=== PATIENT | female | born 1975 | race American Indian/Alaskan Native ===

== ENCOUNTER 2018-11-14 23:17 | Emergency (ER) | payer OTHER ==
[2018-11-14 23:35] VITALS: BP 111/70
[2018-11-15] MEDS ORDERED: FIORICET PO ONE (01:43)
[2018-11-15] MEDS ORDERED: ZOFRAN IV ONE (01:43)
[2018-11-15] MEDS ORDERED: TORADOL IV ONE (01:43)
--- NOTE | 2018-11-15 02:23 | Cat Scan Report ---
CT head without contrast INDICATION : HEADACHE. Headache and blurred vision today TECHNIQUE: Axial imaging performed from the skull apex through the skull base without the use of con trast. All CT scans at this location are performed using CT dose reduction for ALARA by means of aut omated exposure control. COMPARISON: None FINDINGS: Parenchyma: No acute intracranial hemorrhage or parenchymal abnormality. Ventricles: Ventricles are normal in size and appear symmetric. Soft tissues: Soft tissues including the orbits appear normal. Bones: No acute osseous abnormality. Sinuses: Sinuses and mastoid air cells are clear. IMPRESSION: No acute abnormality. Signer Name: Og Cook MD Signed: 11/15/2018 2:19 AM Workstation Name: [id number]
[2018-11-15 02:49] LABS: Alanine Aminotransferase 9 units/L (7-56); Albumin 3.9 g/dL (3.9-5); BUN/Creatinine Ratio 26; Blood Urea Nitrogen 21 mg/dL (7-17); Hemolysis Index 15
[2018-11-15 02:56] LABS: Basophils % (Auto) 0.4 % (0.0-1.8); Eosinophils # (Auto) 0.3 K/mm3 (0.0-0.4); Eosinophils % (Auto) 3.9 % (0.0-4.3); Hematocrit 36.5 % (30.3-42.9); Hemoglobin 12.1 gm/dl (10.1-14.3); Lymphocytes # (Auto) 3.4 K/mm3 (1.2-5.4); Mean Corpuscular HGB Conc 33 % (30-34); Mean Corpuscular Volume 84 fl (79-97); Monocytes # (Auto) 0.6 K/mm3 (0.0-0.8); Monocytes % (Auto) 7.5 % (0.0-7.3); Platelet Count 238 K/mm3 (140-440); Red Blood Count 4.36 M/mm3 (3.65-5.03); Red Cell Distribution Width 14.2 % (13.2-15.2)
[2018-11-15] MEDS ORDERED: NACL 0.9% 1000 ML 1,000 ML IV ONE (03:34)
[2018-11-15 04:46] LABS: HCG Qualitative,Urine Negative (Negative)
[2018-11-15 04:50] LABS: Bilirubin,Urine NEG (Negative); Blood,Urine NEG (Negative); Color,Urine Yellow (Yellow); Mucus,Urine 1+ /HPF; Protein,Urine <15 mg/dL mg/dL (Negative); Urobilinogen,Urine < 2.0 mg/dL (<2.0)
--- NOTE | 2018-11-15 05:19 | Emergency Department Report ---
ED Headache HPI - General Chief Complaint: Headache Stated Complaint: BLURRED VISION,SUMNER Time Seen by Provider: 11/15/18 01:35 Source: patient Exam Limitations: no limitations - History of Present Illness Initial Comments: Patient is a 43 yo AA female with no past medical history who presents to the ED compound of acute onset persistent headache on the right temporal side with b lurry vision for the last 1 week. Patient also states that she has been having intermittent right arm tingling sensation and neck pain. Patient denies nausea, vomiting, chest pain, shortness of breath, dizziness, syncope, seizures, abdominal pain, fever, chills, cough, nasal and sinus congestion or vision loss and palpitations. Timing/Duration: 1 week Quality: severe, sharp Head Injury Location: temporal (right) Recent Head Trauma: no recent headache/trauma Associated Symptoms: denies symptoms. denies: confusion, fatigue, facial pain, fever/chills, flushing, loss of consciousness, nausea/vomiting, nasal congestion, nasal drainage, numbness in legs/feet, seizures, sinus infection, stiff neck, vision changes, weakness Allergies/Adverse Reactions: Allergies No Known Allergies Allergy (Unverified 11/14/18 23:35) Home Medications: Ambulatory Orders Butalb/Acetamin/Caff 50-325-40 [Fioricet 50-325-40] 1 - 2 tab PO Q6HR PRN #15 tab 11/15/18 Ketorolac [Toradol] 10 mg PO Q8H PRN #20 tablet 11/15/18 Ondansetron [Zofran Odt] 4 mg PO Q6HR PRN #15 tab.rapdis 11/15/18 predniSONE [Deltasone] 40 mg PO QDAY #10 tab 11/15/18 ED Review of Systems ROS: Stated complaint: BLURRED VISION,SUMNER Other details as noted in HPI Constitutional: denies: chills, fever Eyes: denies: eye pain, eye discharge, vision change ENT: denies: ear pain, throat pain Respiratory: denies: cough, shortness of breath, wheezing Cardiovascular: denies: chest pain, palpitations Endocrine: no symptoms reported Gastrointestinal: denies: abdominal pain, nausea, diarrhea Genitourinary: denies: urgency, dysuria, discharge Musculoskeletal: denies: back pain, joint swelling, arthralgia Skin: denies: rash, lesions Neurological: headache. denies: weakness, paresthesias Psychiatric: denies: anxiety, depression Hematological/Lymphatic: denies: easy bleeding, easy bruising ED Past Medical Hx - Past Medical History Previous Medical History?: No - Surgical History Past Surgical History?: Yes Additional Surgical History: Right Carpal Tunnel - Social History Smoking Status: Current Every Day Smoker Substance Use Type: None - Medications Home Medications: Home Medications Medication Instructions Recorded Confirmed Last Taken Type Butalb/Acetamin/Caff 50-325-40 1 - 2 tab PO Q6HR PRN #15 tab 11/15/18 Unknown Rx [Fioricet 50-325-40] Ketorolac [Toradol] 10 mg PO Q8H PRN #20 tablet 11/15/18 Unknown Rx Ondansetron [Zofran Odt] 4 mg PO Q6HR PRN #15 tab.rapdis 11/15/18 Unknown Rx predniSONE [Deltasone] 40 mg PO QDAY #10 tab 11/15/18 Unknown Rx ED Physical Exam - General Limitations: No Limitations General appearance: alert, in no apparent distress - Head Head exam: Present: atraumatic, normocephalic - Eye Eye exam: Present: normal appearance, PERRL, EOMI Pupils: Present: normal accommodation - ENT ENT exam: Present: normal exam, normal orophraynx, mucous membranes moist, TM's normal bilaterally, normal external ear exam - Neck Neck exam: Present: normal inspection, full ROM. Absent: tenderness, lymphadenopathy, thyromegaly - Respiratory Respiratory exam: Present: normal lung sounds bilaterally. Absent: respiratory distress, wheezes, rales, rhonchi, chest wall tenderness, accessory muscle use, decreased breath sounds - Cardiovascular Cardiovascular Exam: Present: regular rate, normal rhythm, normal heart sounds. Absent: systolic murmur, diastolic murmur, rubs, gallop - GI/Abdominal GI/Abdominal exam: Present: soft, normal bowel sounds. Absent: tenderness, guarding, rebound, hypoactive bowel sounds, organomegaly, mass - Rectal Rectal exam: Present: deferred - Extremities Exam Extremities exam: Present: normal inspection, full ROM, normal capillary refill - Back Exam Back exam: Present: normal inspection, full ROM. Absent: tenderness, CVA tenderness (R), CVA tenderness (L), muscle spasm, paraspinal tenderness - Neurological Exam Neurological exam: Present: alert, oriented X3, CN II-XII intact, normal gait, reflexes normal - Psychiatric Psychiatric exam: Present: normal affect, normal mood, anxious - Skin Skin exam: Present: warm, dry, intact, normal color. Absent: rash ED Course Vital Signs 11/14/18 23:30 Temperature 98.5 F Pulse Rate 93 H Respiratory 16 Rate Blood Pressure 111/70 O2 Sat by Pulse 99 Oximetry - Reevaluation(s) Reevaluation #1: 11/15/18 05:20 This is a 43-year-old female who presented to the ED with persistent headache with blurry vision for the last 1 week. In the ED, patient is alert and oriented 3 and is not in distress with normal vital signs. Lab test results were reviewed and are unremarkable. Head CT scan without contrast shows no acute intracranial abnormalities or hemorrhage. Patient was treated for migraine headaches in the ED on also received normal saline IV 1 L bolus. On reevaluation, patient's pain is well controlled with medications, patient resting comfortably in the room sleeping. Patient was discharged home on medications and advised follow-up with her primary care physician in 5-7 days for reevaluation or return to the ED immediately if symptoms get worse. ED Medical Decision Making - Lab Data Result diagrams: 11/15/18 02:06 11/15/18 02:06 - Radiology Data Radiology results: report reviewed, image reviewed Head CT scan without contrast shows no acute intracranial abnormalities or hemorrhage. - Medical Decision Making This is a 43-year-old female who presented to the ED with persistent headache with blurry vision for the last 1 week. In the ED, patient is alert and oriented 3 and is not in distress with normal vital signs. Lab test results were reviewed and are unremarkable. Head CT scan without contrast shows no acute intracranial abnormalities or hemorrhage. Patient was treated for migraine headaches in the ED on also received normal saline IV 1 L bolus. On reevaluation, patient's pain is well controlled with medications, patient resting comfortably in the room sleeping. Patient was discharged home on medications and advised follow-up with her primary care physician in 5-7 days for reevaluation or return to the ED immediately if symptoms get worse. - Differential Diagnosis migraine headache; cervical radiculopathy; dehydration Critical care attestation.: If time is entered above; I have spent that time in minutes in the direct care of this critically ill patient, excluding procedure time. ED Disposition Clinical Impression: Dehydration Migraine headache with aura Qualifiers: Status migrainosus presence: without status migrainosus Intractability: not intractable Qualified Code(s): G43.109 - Migraine with aura, not intractable, without status migrainosus Disposition: TO HOME OR SELFCARE Is pt being admited?: No Does the pt Need Aspirin: No Condition: Stable Instructions: Migraine Headache (ED), Cervical Radiculopathy (ED) Additional Instructions: Take medications with food, drink plenty of fluids and follow-up with your primary care physician in 5-7 days for reevaluation. Return to the ED immediately if symptoms get worse. Prescriptions: predniSONE [Deltasone] 40 mg PO QDAY #10 tab Butalb/Acetamin/Caff 50-325-40 [Fioricet 50-325-40] 1 - 2 tab PO Q6HR PRN #15 tab PRN Reason: Headache Ketorolac [Toradol] 10 mg PO Q8H PRN #20 tablet PRN Reason: Pain Ondansetron [Zofran Odt] 4 mg PO Q6HR PRN #15 tab.rapdis PRN Reason: Nausea Referrals: FERN STUART MD [Primary Care Provider] - 3-5 Days Forms: Work/School Release Form(ED) Time of Disposition: 05:24 Print Language: TAJIK
== END 2018-11-15 05:58 | disposition home or self-care (01) ==
LOC: ED 23:17
DX: E86.0 Dehydration (principal); G43.909 Migraine, unspecified, not intractable, without status migrainosus; F17.200 Nicotine dependence, unspecified, uncomplicated; Z98.890 Other specified postprocedural states; Z79.899 Other long term (current) drug therapy
CPT/HCPCS: 36415; 70450; 80053; 81001; 81025; 82962; 85025; 96361; 96374; 96375; 99284; J1885; J2405; J7030